=== PATIENT | male | born 1945 | race Caucasian/White ===

== ENCOUNTER 2025-10-21 21:03 | Emergency (ER) | payer MEDICARE, OTHER ==
[~2025-10-21] VITALS: Ht 182.9 cm; Wt 86.4 kg
[2025-10-21 21:27] VITALS: BP 124/64; PULSE 67; RESP 18; TEMP 98.7; O2SAT 98
== END 2025-10-22 01:22 | disposition home or self-care (01) ==
LOC: EMS 21:06
DX: F03.911 Unspecified dementia, unspecified severity, with agitation (principal); R45.1 Restlessness and agitation; E11.9 Type 2 diabetes mellitus without complications; E78.00 Pure hypercholesterolemia, unspecified; I11.0 Hypertensive heart disease with heart failure; F32.A Depression, unspecified; I48.91 Unspecified atrial fibrillation; Z88.6 Allergy status to analgesic agent
CPT/HCPCS: 99283; Z7502